=== PATIENT | female | born 1985 | race Caucasian/White ===

== ENCOUNTER 2023-03-31 09:30 | Emergency (ER) | payer OTHER, SELFPAY ==
[2023-03-31 09:33] VITALS: BP 136/86; PULSE 73; RESP 18; TEMP 36.6; O2SAT 98; BMI 26.1
--- NOTE | 2023-03-31 09:52 | ED.FEMALEGU1 ---
HPI - Female Genitourinary General Chief complaint: Urogenital-Female Stated complaint: UROGENITAL-FEMALE Time Seen by Provider: 03/31/23 09:48 Source: patient Mode of arrival: walk-in History of Present Illness HPI Narrative: this patient's here claiming of vaginal bleeding and is fearful she may be having a miscarriage. 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 She is approximately one week late on her last normal menstrual period and is passing heavy clots today. He does not have a local doctor if she just moved to this area. she did pass some clots today. She did not take a home test as I indicated. Related Data Home Medications Medication Instructions Recorded Confirmed No Known Home Medications 03/31/23 03/31/23 Allergies Allergy/AdvReac Type Severity Reaction Status Date / Time vanilla extract flavor Allergy Unknown Verified 03/31/23 09:39 cephalexin [From Keflex] AdvReac Severe Shortness Verified 03/31/23 09:39 of breath iodine AdvReac Severe Anaphylaxis Verified 03/31/23 09:39 Penicillins AdvReac Severe SHORTNESS Verified 03/31/23 09:39 OF BREATH Sulfa (Sulfonamide AdvReac Severe itchy Verified 03/31/23 09:39 Antibiotics) throat Exam Narrative Exam Narrative: vital signs are as noted. She does not appear ill or uncomfortable. Her mucous membranes are moist and pink. There is no scleral icterus or pallor. Examination abdomen is flat soft supple with no peritoneal findings or guarding rebound rigidity or discomfort. Extremities do not have any edema. Orthostatic vital signs are as noted. She remained asymptomatic Constitutional Vital Signs, click to edit/add: Last Vital Signs Temp 97.8 F 03/31/23 09:33 Pulse 73 03/31/23 09:33 Resp 18 03/31/23 09:33 BP 136/86 03/31/23 09:33 Pulse Ox 98 03/31/23 09:33 O2 Del Method Room Air 03/31/23 09:33 Course Vital Signs Vital signs: Vital Signs Temperature 97.8 F 03/31/23 09:33 Pulse Rate 73 03/31/23 09:33 Respiratory Rate 18 03/31/23 09:33 Blood Pressure 136/86 03/31/23 09:33 Pulse Oximetry 98 12/14/23 09:33 Oxygen Delivery Method Room Air 03/31/23 09:33 Temperature 97.8 F 03/31/23 09:33 Pulse Rate 73 03/31/23 09:33 Respiratory Rate 18 03/31/23 09:33 Blood Pressure 136/86 03/31/23 09:33 Pulse Oximetry 98 03/31/23 09:33 Oxygen Delivery Method Room Air 03/31/23 09:33 MDM - Female Genitourinary MDM Narrative Medical decision making narrative: ppatient's test is negative. Her hemoglobin is ten. She does not know what her baseline hemoglobin is. We'll be giving her a copy of her lab and make recommendations to follow-up with her local [facility]. if bleeding persists she can come to the Emergency Room. I think is premature to suggest hormonal therapy at this time until she's has gynecological evaluation Lab Data Labs: Lab Results 03/31/23 Range/Units 10:15 WBC 6.7 (4.0-11.0) 10^3/uL RBC 4.30 (4.20-5.40) 10^6/uL Hgb 10.4 L (12.0-16.0) g/dL Hct 35.7 L (36.0-48.0) % MCV 83.0 (81.0-99.0) fL MCH 24.2 L (26.7-34.0) pg MCHC 29.1 L (29.9-35.2) g/dL RDW 16.4 H (11.0-15.0) % Plt Count 279 (150-450) 10^3/uL MPV 9.9 (9.5-13.5) fL Neut % (Auto) 65.2 (43.0-75.0) % Lymph % (Auto) 26.1 (20.5-60.0) % [place] % (Auto) 7.4 (1.7-12.0) % Eos % (Auto) 0.6 L (0.9-7.0) % Baso % (Auto) 0.4 (0.2-2.0) % Neut # (Auto) 4.4 (1.4-6.5) 10^3/uL Lymph # (Auto) 1.8 (1.2-3.8) 10^3/uL [place] # (Auto) 0.5 (0.3-0.8) 10^3/uL Eos # (Auto) 0.0 (0.0-0.7) 10^3/uL Baso # (Auto) 0.0 (0.0-0.1) 10^3/uL Abs Immat Gran (auto) 0.02 (0.00-0.03) 10^3/uL Imm/Tot Granulo (auto) 0.3 (0.0-0.5) % HCG, Quant <1 mIU/mL Discharge Plan Discharge Chief Complaint: Urogenital-Female Clinical Impression: DUB (dysfunctional uterine bleeding) Patient Disposition: Home, Self-Care Time of Disposition Decision: 11:50 Prescriptions / Home Meds: No Action No Known Home Medications Stand Alone Forms: Portal Instructions Referrals: Physician,Non-Staff, MD [Primary Care Provider] - 1 week
[2023-03-31 10:38] LABS: Basophils Percent Auto 0.4 % (0.2-2.0); Eosinophils Percent Auto 0.6 % (0.9-7.0); Hematocrit 35.7 % (36.0-48.0); Hemoglobin 10.4 g/dL (12.0-16.0); Immature Granulocytes Abs Auto 0.02 10^3/uL (0.00-0.03); Immature Granulocytes Pct Auto 0.3 % (0.0-0.5); Lymphocytes Absolute Auto 1.8 10^3/uL (1.2-3.8); Lymphocytes Percent Auto 26.1 % (20.5-60.0); Mean Corpuscular HGB Conc 29.1 g/dL (29.9-35.2); Mean Corpuscular Hemoglobin 24.2 pg (26.7-34.0); Mean Platelet Volume 9.9 fL (9.5-13.5); Monocytes Absolute Auto 0.5 10^3/uL (0.3-0.8); Monocytes Percent Auto 7.4 % (1.7-12.0); Neutrophils Absolute Auto 4.4 10^3/uL (1.4-6.5); Neutrophils Percent Auto 65.2 % (43.0-75.0); Platelet Count 279 10^3/uL (150-450); Red Cell Distribution Width 16.4 % (11.0-15.0); White Blood Count 6.7 10^3/uL (4.0-11.0)
[2023-03-31 10:57] LABS: HCG Quantitative <1 mIU/mL
[2023-03-31 11:54] VITALS: BP 126/86; BP 128/83; BP 146/89; PULSE 68; PULSE 82
== END 2023-03-31 12:03 | disposition home or self-care (01) ==
PROVIDERS: Emergency Provider Emergency Medicine Emergency Medical Services
DX: N93.8 Other specified abnormal uterine and vaginal bleeding (principal)
CPT/HCPCS: 36415; 84702; 85025; 99283